=== PATIENT | female | born 1965 | race Caucasian/White ===

== ENCOUNTER 2023-10-07 06:20 | Emergency (ER) | payer BC ==
[2023-10-07] MEDS: Ketorolac 30 MG/ML SDV IM ONE (06:53)
== END 2023-10-07 07:37 | disposition home or self-care (01) ==
LOC: JD.ED 06:20
DX: S83.411A Sprain of medial collateral ligament of right knee, initial encounter (principal); J45.909 Unspecified asthma, uncomplicated; E11.9 Type 2 diabetes mellitus without complications; Z88.0 Allergy status to penicillin; Z91.030 Bee allergy status; Z91.040 Latex allergy status; Z88.8 Allergy status to other drugs, medicaments and biological substances; X50.1XXA Overexertion from prolonged static or awkward postures, initial encounter
CPT/HCPCS: 73562; 96372; 99283; J1885